=== PATIENT | female | born 1950 | race Caucasian/White ===

== ENCOUNTER 2023-05-14 12:44 | Outpatient (OUT) | payer MEDICARE, SELFPAY ==
--- NOTE | 2023-05-14 13:12 | PM.CN ---
Consult Note: HPI Data of Consult Patient: known to practice within the last 3 years Consult date: 05/14/23 Requesting Physician: GUERA PUAL NP Primary Care Provider: MARIELA LAGUNA Consult Narrative Narrative: Patient is here for f/u of mid back pain. She prefers no interventional measures at this time. She currently takes lorazepam and is aware she will not be prescribed tramadol or other narcotics with the benzo d/t combined adverse SE. We discussed ability to try narcotic if she stops taking ativan. She prefers to keep taking ativan d/t anxiety. We also discussed ability to increase tizanidine to BID and try meloxicam. She is agreeable to plan.No new sensorimotor sx or bowel or bladder issues. Medication regimen is controlling pain and assisting patient with ability to perform ADLs. cc:: CC: GUERA PAUL NP Review of Systems ROS Status of ROS 10 or more systems reviewed and unremarkable except as noted in history and below Musculoskeletal Reports: back pain Exam Constitutional Documenting provider has reviewed patient's vital signs: yes Common normals: no apparent distress, average body habitus, oriented x3, healthy appearing, alert and well nourished General appearance: cooperative, comfortable and well developed Orientation/consciousness: Yes awake, Yes oriented to person, Yes oriented to place and Yes oriented to time HENMT Common normals: normocephalic and moist oral mucous membranes Respiratory Common normals: normal respiratory effort, no retractions and no use of accessory muscles Effort & inspection: able to speak in complete sentences and symmetric chest movement Back & Pelvis Thoracic spine/upper back: normal to inspection, ROM limited, pain with ROM, thoracic spinal tenderness, paraspinal muscle tenderness, paraspinal muscle spasm and kyphosis present Assessment and Plan Assessment and Plan (1) Muscle spasm: (2) Spondylolysis, thoracic region: Plan strat meloxicam increase tizanidine to BID
== END 2023-05-14 12:45 | disposition home or self-care (01) ==
LOC: PM 12:44
PROVIDERS: PCP Family Medicine; Visit Provider Nurse Practitioner
DX: M62.838 Other muscle spasm (principal); M47.814 Spondylosis without myelopathy or radiculopathy, thoracic region
CPT/HCPCS: G0463

== ENCOUNTER 2024-07-13 11:30 | Emergency (ER) | payer MEDICARE, SELFPAY ==
[2024-07-13] VITALS (41 sets, daily range): BP systolic 66–154; BP diastolic 39–92; PULSE 76–88; TEMP 36.5; O2SAT 93–100; BMI 23.8
--- NOTE | 2024-07-13 11:36 | CT_ITS ---
[address] [address] Patient Name: KIT SIMS MRN: [id number] date: 1950 Sex: F Assigned Patient Location: ER Current Patient Location: ER Accession/Order Number: [id number] Exam Date: 07/13/2024 13:35 Report Date: 07/13/2024 14:42 At the request of: HENRI SALCIDO Procedure: CT chest w con EXAM: CT abdomen pelvis w con, CT chest w con HISTORY: fall, abd pain COMPARISON: None. TECHNIQUE: Axial CT imaging was performed through the chest, abdomen, and pelvis with intravenous contrast. Multiplanar reformats were performed. Dose reduction techniques were achieved by using automated exposure control and/or adjustment of mA and/or kV according to patient size and/or use of iterative reconstruction technique. CHEST FINDINGS: Lungs: There is moderate right pneumothorax with 3.1 cm in maximum thickness. There is small right high density fluid, likely representing hemothorax. There are right greater than left lower lobes and right middle lobe groundglass opacities, may represent pulmonary contusion and/or atelectasis. Airways: Patent. Mediastinum: No adenopathy. No pneumomediastinum. Aorta: No aneurysm. Cardiac: Normal size. No pericardial effusion. Pulmonary vasculature: Normal morphology. Bones: There are displaced fractures of right lateral fifth-ninth ribs. Axilla: No adenopathy. Thyroid gland: No abnormality demonstrated on provided imaging. Soft tissues: Subcutaneous emphysema of the right anterior, lateral and posterior neck, extending to the right chest wall and posterior upper back. Additional findings: None. ABDOMEN AND PELVIS FINDINGS: GI upper: Unremarkable. Liver: Normal size and contour. Gallbladder: Cholecystectomy. Biliary system: No intra or extrahepatic biliary ductal dilatation. Spleen: Normal size. Pancreas: Unremarkable. Adrenal glands: Normal adrenal glands. Kidneys/ureters: Normal contours. No hydronephrosis. No nephrolithiasis or ureterolithiasis. There is a 1.2 cm left simple renal cyst. Vessels: No aneurysm. Lymph Nodes: No lymphadenopathy. Small bowel: No wall thickening or dilatation. Colon: No wall thickening or dilatation. Sigmoid diverticulosis without evidence of acute diverticulitis. Appendix: No findings of appendicitis. Peritoneal cavity: No free fluid or pneumoperitoneum. Lower : Unremarkable. Bones: Bilateral inferior pubic rami fractures are healing. Soft tissues: No acute finding. Additional findings: None. CT/CT chest w con IMPRESSION: moderate right pneumothorax with 3.1 cm in maximum thickness. There is small right high density fluid, likely representing hemothorax. There are right greater than left lower lobes and right middle lobe groundglass opacities, may represent pulmonary contusion and/or atelectasis. displaced fractures of right lateral fifth-ninth ribs. Subcutaneous emphysema of the right anterior, lateral and posterior neck, extending to the right chest wall and posterior upper back. Critical results were NOTIFIED by TELEPHONE BY Dr. Kathleen Talbert [facility] At 07/13/2024 2:27 PM EDT. Electronically authenticated by: KATHLEEN TALBERT Date: 07/13/2024 14:42
--- NOTE | 2024-07-13 11:36 | ECG_ITS ---
[facility] Test Date: 2024-07-13 Pat Name: KIT SIMS Department: Room: - Gender: Female [employer]: : 1950 Requested By: Margaret Stacy Order Number: [id number] Reading MD: KRIS COX Measurements Intervals [place] Rate: 91 P: 69 MA: 168 QRS: 47 QRSD: 88 T: 70 QT: 370 QTc: 419 Interpretive Statements 1100 Sinus rhythm 9110 normal ECG Compared to ECG 04/27/2020 12:58:56 No significant changes Electronically Signed On 07-13-2024 20:41:36 EDT by KRIS COX
--- NOTE | 2024-07-13 11:41 | ED.CHESTPAI1 ---
HPI - Chest Pain General Chief Complaint: Chest Pain Stated Complaint: SYNCOPE Time Seen by Provider: 07/13/24 11:36 Source: patient Mode of arrival: ambulance History of Present Illness HPI narrative: Patient presents ED complaining of right sided rib pain. She was at home and stated she had to have a bowel movement so she got up to go to the bathroom. She got lightheaded and dizzy and weak on her way to the bathroom and she fell hitting the right ribs against the countertop. She states she did not fully pass out but nearly did pass out and she did report losing control of her urine. No seizure-like activity and no history of seizures. Patient called her and he called 911 to the house. Upon arrival her blood pressure was 70/50. And route they got her up to 90s systolic. Here in ED she is 81/59 on arrival. IV fluids were given and route and IV fluids are continuing here. Patient denies any blood in the stool. She is alert and oriented complaining of the right sided chest and rib pain, shortness of breath and also abdominal pain. History of osteoporosis Related Data Home Medications ?Medication ?Instructions ?Recorded ?Confirmed calcium carbonate 600 mg-vitamin 1 tab PO DAILY 05/14/23 07/13/24 D3 5 mcg (200 unit) tablet (Calcium 600 + D(3)) lorazepam 0.5 mg tablet (Ativan) 0.5 mg PO DAILY 05/14/23 07/13/24 sertraline 25 mg tablet 25 mg PO DAILY 05/14/23 07/13/24 atorvastatin 40 mg tablet 40 mg PO DAILY 07/13/24 07/13/24 metoprolol succinate 50 mg 50 mg PO DAILY 07/13/24 07/13/24 tablet,extended release 24 hr trazodone 50 mg tablet 50 mg PO DAILY 07/13/24 07/13/24 Allergies Allergy/AdvReac Type Severity Reaction Status Date / Time No Known Drug Allergies Allergy Verified 05/14/23 15:17 Review of Systems ROS Status of ROS 10 or more systems reviewed and unremarkable except as noted in history and below Exam Narrative Exam Narrative: Time Seen: [] Vital Signs: [Per nurse's notes.] General: [Alert]Hypotensive Skin: [Warm, dry, no rash.] Head: [Normocephalic, atraumatic.] Neck: [Supple, trachea midline.] Eye: [Pupils are equal, round and reactive to light, extraocular movements are intact, normal conjunctiva.] Ears, nose, mouth and throat: oral mucosa moist. Cardiovascular: [Regular rate and rhythm, no murmur.] Respiratory: Diminished breath sounds worse on the right, patient is splinting with breathing, most likely rib fractures on the right. Patient is unable to take a big breath due to pain, breath sounds difficult to evaluate respirations are non-labored, Patient is 93% on room air on arrival. Chest wall: Small abrasion and contusion in the right ribs. Tenderness to palpation in the right ribs Gastrointestinal: [Soft, Mild diffuse abdominal tenderness, non distended, normal bowel sounds.] MSK: 5 out of 5 muscle strength x 4 extremities no calf pain or edema Lymphatics: [No lymphadenopathy.] Psychiatric: [Cooperative, appropriate mood & affect.] Neurological: [Alert and oriented to person, place, time, and situation, no focal neurological deficit observed.] Constitutional Vital Signs, click to edit/add: Last Vital Signs Temp 97.7 F 07/13/24 12:16 Pulse 77 07/13/24 15:20 Resp 20 07/13/24 15:20 BP 96/50 07/13/24 15:20 Pulse Ox 95 07/13/24 15:20 O2 Del Method Nasal Cannula 07/13/24 12:00 O2 Flow Rate 2 07/13/24 12:00 Course Vital Signs Vital signs: Vital Signs Pulse Rate 88 07/13/24 11:32 Respiratory Rate 22 H 07/13/24 11:32 Blood Pressure 81/59 L 07/13/24 11:32 Pulse Oximetry 93 L 07/13/24 11:32 Oxygen Delivery Method Room Air 07/13/24 11:32 Temperature 97.7 F 07/13/24 12:16 Pulse Rate 77 07/13/24 15:20 Respiratory Rate 20 07/13/24 15:20 Blood Pressure 96/50 07/13/24 15:20 Pulse Oximetry 95 07/13/24 15:20 Oxygen Delivery Method Nasal Cannula 07/13/24 12:00 Oxygen Delivery Flow Rate 2 07/13/24 12:00 MDM - Chest Pain MDM Narrative Medical decision making narrative: Patient's labs Show a stable hemoglobin at 14.9. Lactate is elevated at almost 4. Given the fact that she was hypotensive dizzy lightheaded prior to the fall, I was concern for possible sepsis causing the hypotension and the fall. Patient was found to have rib fractures with hemopneumothorax on CT chest. CT abdomen pelvis showed no acute traumatic findings. I called and spoke to Dr. Poe who states we do not have CT surgery here and this would be better served at a trauma center. Patient and family requested [facility]. I spoke to the trauma doctor at [facility] and she is excepting the patient. I spoke to the ER doctor and the patient is excepted to ER to ER. Given the new information of the hemopneumothorax, patient will be flown to [facility]. I was going to place the chest tube, but I was told by the physician on the phone to hold off on putting the chest tube in and let the trauma/general surgery team put the chest tube in here. Patient had remained stable here in ED. Her blood pressure was slightly low but the patient and family state that she is chronically low on her blood pressure. She thought she was off all of her blood pressure medication but turns out she still been taking her metoprolol. She thought that was her cholesterol medication. She was given IV fluids here in ED and then started on Levophed. Her blood pressure responded well to Levophed so we actually backed it off a little bit because her blood pressure was getting too high. [facility] arrived to take patient to [facility] ED. Patient was very stable prior to flight and comfortable with care plan for transfer. Differential Diagnosis Differential diagnosis: Likely fracture of rib, pneumothorax, stable angina, unstable angina pectoris, atypical chest pain, st elevation myocardial infarction and chest pain Medical Records Data Attestation: I reviewed the patient's medical records. Lab Data Attestation: I reviewed the patient's lab results. Labs: Lab Results 07/13/24 07/13/24 Range/Units 11:58 14:51 WBC 10.0 (4.0-11.0) 10^3/uL RBC 4.80 (4.20-5.40) 10^6/uL Hgb 14.9 (12.0-16.0) g/dL Hct 47.9 (36.0-48.0) % MCV 99.8 H (81.0-99.0) fL MCH 31.0 (26.7-34.0) pg MCHC 31.1 (29.9-35.2) g/dL RDW 12.2 (11.0-15.0) % Plt Count 227 (150-450) 10^3/uL MPV 8.2 L (9.5-13.5) fL Neut % (Auto) 76.5 H (43.0-75.0) % Lymph % (Auto) 19.9 L (20.5-60.0) % [place] % (Auto) 1.7 (1.7-12.0) % Eos % (Auto) 1.1 (0.9-7.0) % Baso % (Auto) 0.1 L (0.2-2.0) % Neut # (Auto) 7.6 H (1.4-6.5) 10^3/uL Lymph # (Auto) 2.0 (1.2-3.8) 10^3/uL [place] # (Auto) 0.2 L (0.3-0.8) 10^3/uL Eos # (Auto) 0.1 (0.0-0.7) 10^3/uL Baso # (Auto) 0.0 (0.0-0.1) 10^3/uL Abs Immat Gran (auto) 0.07 H (0.00-0.03) 10^3/uL Imm/Tot Granulo (auto) 0.7 H (0.0-0.5) % PT 13.5 H (9.0-11.6) sec INR 1.31 Sodium 141 (136-145) mmol/L Potassium 3.6 (3.5-5.1) mmol/L Chloride 108 H (98-107) mmol/L Carbon Dioxide 20.6 L (21.0-32.0) mmol/L Anion Gap 16.0 BUN 10.0 (7.0-18.0) mg/dL Creatinine 1.14 H (0.55-1.02) mg/dL Est GFR ( Amer) 57 L (>=60) Est GFR (Non-Af Amer) 47 L (>=60) BUN/Creatinine Ratio 8.8 Glucose 130 H (74-106) mg/dL Lactate 3.7 H* 2.0 (0.4-2.0) mmol/L Calcium 8.5 (8.5-10.1) mg/dL Total Bilirubin 0.6 (0.2-1.0) mg/dL AST 31 (15-37) U/L ALT 29 (14-59) U/L Alkaline Phosphatase 105 (46-116) U/L Troponin I High Sens 6.4 (4.0-51.3) pg/mL Total Protein 6.4 (6.4-8.2) g/dL Albumin 2.8 L (3.4-5.0) g/dL Globulin 3.6 g/dL Albumin/Globulin Ratio 0.[address] scan - chest: Radiologist's impression: ITS Impressions Chest CT 07/13/24 11:36 IMPRESSION: moderate right pneumothorax with 3.1 cm in maximum thickness. There is small right high density fluid, likely representing hemothorax. There are right greater than left lower lobes and right middle lobe groundglass opacities, may represent pulmonary contusion and/or atelectasis. displaced fractures of right lateral fifth-ninth ribs. Subcutaneous emphysema of the right anterior, lateral and posterior neck, extending to the right chest wall and posterior upper back. Critical results were NOTIFIED by TELEPHONE BY Dr. Kathleen Winkler MD to [facility] At 07/13/2024 2:27 PM EDT. Electronically authenticated by: KATHLEEN WINKLER Date: 07/13/2024 14:42 Abdomen/Pelvis CT 07/13/24 11:49 IMPRESSION: moderate right pneumothorax with 3.1 cm in maximum thickness. There is small right high density fluid, likely representing hemothorax. There are right greater than left lower lobes and right middle lobe groundglass opacities, may represent pulmonary contusion and/or atelectasis. displaced fractures of right lateral fifth-ninth ribs. Subcutaneous emphysema of the right anterior, lateral and posterior neck, extending to the right chest wall and posterior upper back. Critical results were NOTIFIED by TELEPHONE BY Dr. Kathleen Winkler MD to flower At 07/13/2024 2:27 PM EDT. Electronically authenticated by: KATHLEEN WINKLER Date: 07/13/2024 14:42 ECG Data Interpretation: EKG INTERPRETATION Time: []1140 Rate: []91 Rhythm: _ []Normal sinus rhythm ST segments: _ []No acute ST elevation or depression T waves: _ [] Ectopy: _ [] P wave/VA interval: _ [] QRS interval: _ [] QT interval: _ [] Comparison: _ [] Comparison EKG date: [] Performed by: [self] Critical Care Time Critical Care Time Critical Care Time: Yes (, Multiple rib fractures, hemopneumothorax) Total Critical Care Time: 91 Attestation: Patient fell and will be transferred to [facility] as a trauma, multiple rib fractures and hemopneumothorax Discharge Plan Discharge Chief Complaint: Chest Pain Clinical Impression: Hemothorax with pneumothorax, traumatic, Fall, Hypotension Patient Disposition: [facility] Time of Disposition Decision: 15:14 Discharge Location: [facility] Condition: Serious Mode of Transportation: [facility] Discharge Date/Time: 07/13/24 15:50
[2024-07-13] MEDS: 0.9 % SODIUM CHLORIDE 1,000 ML 1000 ML IV (11:48)
[2024-07-13] MEDS: MORPHINE SULFATE 4 MG/ML VIAL IV (11:48)
--- NOTE | 2024-07-13 11:49 | CT_ITS ---
[address] [address] Patient Name: KIT SIMS MRN: [id number] date: 1950 Sex: F Assigned Patient Location: ER Current Patient Location: ER Accession/Order Number: [id number] Exam Date: 07/13/2024 13:35 Report Date: 07/13/2024 14:42 At the request of: HENRI SALCIDO Procedure: CT abdomen pelvis w con EXAM: CT abdomen pelvis w con, CT chest w con HISTORY: fall, abd pain COMPARISON: None. TECHNIQUE: Axial CT imaging was performed through the chest, abdomen, and pelvis with intravenous contrast. Multiplanar reformats were performed. Dose reduction techniques were achieved by using automated exposure control and/or adjustment of mA and/or kV according to patient size and/or use of iterative reconstruction technique. CHEST FINDINGS: Lungs: There is moderate right pneumothorax with 3.1 cm in maximum thickness. There is small right high density fluid, likely representing hemothorax. There are right greater than left lower lobes and right middle lobe groundglass opacities, may represent pulmonary contusion and/or atelectasis. Airways: Patent. Mediastinum: No adenopathy. No pneumomediastinum. Aorta: No aneurysm. Cardiac: Normal size. No pericardial effusion. Pulmonary vasculature: Normal morphology. Bones: There are displaced fractures of right lateral fifth-ninth ribs. Axilla: No adenopathy. Thyroid gland: No abnormality demonstrated on provided imaging. Soft tissues: Subcutaneous emphysema of the right anterior, lateral and posterior neck, extending to the right chest wall and posterior upper back. Additional findings: None. ABDOMEN AND PELVIS FINDINGS: GI upper: Unremarkable. Liver: Normal size and contour. Gallbladder: Cholecystectomy. Biliary system: No intra or extrahepatic biliary ductal dilatation. Spleen: Normal size. Pancreas: Unremarkable. Adrenal glands: Normal adrenal glands. Kidneys/ureters: Normal contours. No hydronephrosis. No nephrolithiasis or ureterolithiasis. There is a 1.2 cm left simple renal cyst. Vessels: No aneurysm. Lymph Nodes: No lymphadenopathy. Small bowel: No wall thickening or dilatation. Colon: No wall thickening or dilatation. Sigmoid diverticulosis without evidence of acute diverticulitis. Appendix: No findings of appendicitis. Peritoneal cavity: No free fluid or pneumoperitoneum. Lower : Unremarkable. Bones: Bilateral inferior pubic rami fractures are healing. Soft tissues: No acute finding. Additional findings: None. CT/CT abdomen pelvis w con IMPRESSION: moderate right pneumothorax with 3.1 cm in maximum thickness. There is small right high density fluid, likely representing hemothorax. There are right greater than left lower lobes and right middle lobe groundglass opacities, may represent pulmonary contusion and/or atelectasis. displaced fractures of right lateral fifth-ninth ribs. Subcutaneous emphysema of the right anterior, lateral and posterior neck, extending to the right chest wall and posterior upper back. Critical results were NOTIFIED by TELEPHONE BY Dr. Kathleen Talbert [facility] to [facility] At 07/13/2024 2:27 PM EDT. Electronically authenticated by: KATHLEEN TALBERT Date: 07/13/2024 14:42
[2024-07-13 12:20] LABS: Basophils Percent Auto 0.1 % (0.2-2.0); Eosinophils Absolute Auto 0.1 10^3/uL (0.0-0.7); Eosinophils Percent Auto 1.1 % (0.9-7.0); Hematocrit 47.9 % (36.0-48.0); Hemoglobin 14.9 g/dL (12.0-16.0); Immature Granulocytes Abs Auto 0.07 10^3/uL (0.00-0.03); Immature Granulocytes Pct Auto 0.7 % (0.0-0.5); Lymphocytes Percent Auto 19.9 % (20.5-60.0); Mean Corpuscular HGB Conc 31.1 g/dL (29.9-35.2); Mean Corpuscular Volume 99.8 fL (81.0-99.0); Mean Platelet Volume 8.2 fL (9.5-13.5); Monocytes Absolute Auto 0.2 10^3/uL (0.3-0.8); Monocytes Percent Auto 1.7 % (1.7-12.0); Neutrophils Absolute Auto 7.6 10^3/uL (1.4-6.5); Neutrophils Percent Auto 76.5 % (43.0-75.0); Platelet Count 227 10^3/uL (150-450); Red Cell Distribution Width 12.2 % (11.0-15.0)
[2024-07-13 12:32] LABS: INR 1.31; Prothrombin Time 13.5 sec (9.0-11.6)
[2024-07-13 12:46] LABS: Alanine Aminotransferase 29 U/L (14-59); Albumin Globulin Ratio 0.8; Albumin Level 2.8 g/dL (3.4-5.0); Alkaline Phosphatase 105 U/L (46-116); Aspartate Amino Transferase 31 U/L (15-37); BUN Creatinine Ratio 8.8; Bilirubin Total 0.6 mg/dL (0.2-1.0); Calcium 8.5 mg/dL (8.5-10.1); Carbon Dioxide 20.6 mmol/L (21.0-32.0); Chloride 108 mmol/L (98-107); Estimated GFR (African America 57 (>=60); Estimated GFR (Non-African Ame 47 (>=60); Globulin 3.6 g/dL; Glucose 130 mg/dL (74-106); Potassium 3.6 mmol/L (3.5-5.1); Sodium 141 mmol/L (136-145); Total Protein 6.4 g/dL (6.4-8.2); Troponin I High Sensitivity 6.4 pg/mL (4.0-51.3)
[2024-07-13 12:49] LABS: Lactate/Lactic Acid 3.7 mmol/L (0.4-2.0)
[2024-07-13] MEDS: 0.9 % SODIUM CHLORIDE 1,000 ML 150 ML IV (13:04)
[2024-07-13] MEDS: NOREPINEPHRINE BITARTRATE/D5W 4 MG/250 ML PREMIX 30 MG IV (13:04)
[2024-07-13] MEDS: FENTANYL CITRATE/PF 100 MCG/2 ML VIAL 50 MCG IV (15:18)
[2024-07-14 05:40] LABS: A. calcoaceticus-baumannii Cpx NOT DETECTED (NOT DETECTE); Bacteroides fragilis NOT DETECTED (NOT DETECTE); Candida albicans NOT DETECTED (NOT DETECTE); Candida auris NOT DETECTED (NOT DETECTE); Candida glabrata NOT DETECTED (NOT DETECTE); Candida krusei NOT DETECTED (NOT DETECTE); Candida parapsilosis NOT DETECTED (NOT DETECTE); Candida tropicalis NOT DETECTED (NOT DETECTE); Cryptococcus neoformans/gattii NOT DETECTED (NOT DETECTE); Enterobacter cloacae complex NOT DETECTED (NOT DETECTE); Enterobacterales NOT DETECTED (NOT DETECTE); Enterococcus faecalis NOT DETECTED (NOT DETECTE); Enterococcus faecium NOT DETECTED (NOT DETECTE); Haemophilus influenzae NOT DETECTED (NOT DETECTE); Klebsiella aerogenes NOT DETECTED (NOT DETECTE); Klebsiella pneumoniae group NOT DETECTED (NOT DETECTE); Listeria monocytogenes NOT DETECTED (NOT DETECTE); Neisseria meningitidis NOT DETECTED (NOT DETECTE); Proteus spp. NOT DETECTED (NOT DETECTE); Pseudomonas aeruginosa NOT DETECTED (NOT DETECTE); Salmonella spp. NOT DETECTED (NOT DETECTE); Serratia marcescens NOT DETECTED (NOT DETECTE); Staphylococcus epidermidis NOT DETECTED (NOT DETECTE); Staphylococcus lugdunensis NOT DETECTED (NOT DETECTE); Stenotrophomonas maltophilia NOT DETECTED (NOT DETECTE); Streptococcus agalactiae NOT DETECTED (NOT DETECTE); Streptococcus pneumoniae NOT DETECTED (NOT DETECTE); Streptococcus pyogenes NOT DETECTED (NOT DETECTE); Streptococcus spp. NOT DETECTED (NOT DETECTE)
[2024-07-14 07:39] LABS: Staphylococcus spp. DETECTED (NOT DETECTE)
[2024-07-14 08:15] LABS: Source blood
== END 2024-07-13 15:50 | disposition short-term general hospital (02) ==
PROVIDERS: Emergency Provider Emergency Medicine; PCP Family Medicine
DX: S27.2XXA Traumatic hemopneumothorax, initial encounter (principal); S22.41XA Multiple fractures of ribs, right side, initial encounter for closed fracture; W19.XXXA Unspecified fall, initial encounter; M81.0 Age-related osteoporosis without current pathological fracture; I95.9 Hypotension, unspecified
CPT/HCPCS: 36415; 71260; 74177; 80053; 83605; 84484; 85025; 85610; 87040; 87150; 87186; 93005; 96361; 96365; 96366; 96375; 99285; J2270; J3010; Q9967